=== PATIENT | female | born 1985 | race Caucasian/White ===

== ENCOUNTER 2021-10-17 22:30 | Emergency (ER) | payer MEDICAID ==
[~2021-10-17] VITALS: Ht 152.4 cm; Wt 54.0 kg
[2021-10-18] MEDS ORDERED: KETOROLAC 30MG/ML VIAL IM ONE (00:45)
[2021-10-18] MEDS ORDERED: ACETAMINOPHEN 325MG TABLET PO ONE (00:45)
[2021-10-18] MEDS ORDERED: LIDO700A15 TP (02:18)
[2021-10-18] MEDS ORDERED: IBUP-2029 MT (02:18)
[2021-10-18 02:41] VITALS: BP 121/74
== END 2021-10-18 02:46 | disposition home or self-care (01) ==
LOC: ER 22:30
DX: M54.50 Low back pain, unspecified (principal); M25.552 Pain in left hip; R51.9 Headache, unspecified; V03.10XA Pedestrian on foot injured in collision with car, pick-up truck or van in traffic accident, initial encounter; Y93.89 Activity, other specified; Y92.488 Other paved roadways as the place of occurrence of the external cause
CPT/HCPCS: 72100; 73502; 81025; 96372; 99284; J1885